=== PATIENT | female | born 1955 | race Caucasian/White ===

== ENCOUNTER → 2023-10-05 10:06 | Outpatient (REF) | payer OTHER, SELFPAY | LOC: HWRAD 10:06 | PROVIDERS: ATTENDING PHYSICIAN Physician Assistant; FAMILY PHYSICIAN Family Medicine | DX: D35.01 Benign neoplasm of right adrenal gland (principal); E04.2 Nontoxic multinodular goiter | CPT/HCPCS: 74170; 76536; Q9967 ==

== ENCOUNTER → 2023-11-16 08:32 | Outpatient (REF) | payer OTHER, SELFPAY ==
[2023-11-16 08:54] VITALS: BP 122/71; BP_SYST 82
== END ==
LOC: RADI 08:32
PROVIDERS: ATTENDING PHYSICIAN Physician Assistant; FAMILY PHYSICIAN Family Medicine
DX: E04.1 Nontoxic single thyroid nodule (principal)
CPT/HCPCS: 88173; 10005

== ENCOUNTER → 2024-10-09 09:47 | Outpatient (REF) | payer OTHER, SELFPAY | LOC: RAD 09:47 | PROVIDERS: ATTENDING PHYSICIAN Physician Assistant; FAMILY PHYSICIAN Physician Assistant Medical | DX: E04.2 Nontoxic multinodular goiter (principal); D35.01 Benign neoplasm of right adrenal gland | CPT/HCPCS: 74170; 76536; Q9967 ==